=== PATIENT | male | born 1945 | race Caucasian/White ===

== ENCOUNTER 2025-07-09 12:40 | Inpatient (IN) | payer MEDICARE, OTHER ==
[~2025-07-09] VITALS: Ht 160 cm; Wt 47.2 kg
[2025-07-09 12:46] VITALS: BP 152/91
[2025-07-09] MEDS ORDERED: RISP0.5T5 PO (13:00)
[2025-07-09] MEDS ORDERED: [UNRECOGNIZED DRUG - CODE] PO (13:00)
[2025-07-09] MEDS ORDERED: MIRT-145 PO (13:00)
[2025-07-09] MEDS ORDERED: MIRT-93 PO (16:17)
[2025-07-09] MEDS ORDERED: LOSA1TAB42 PO (16:20)
[2025-07-09] MEDS ORDERED: ERGO125010 PO (16:20)
[2025-07-09] MEDS ORDERED: QUET50TA PO (16:21)
[2025-07-09] MEDS ORDERED: BUPR100T5 PO (16:21)
[2025-07-09] MEDS ORDERED: QUET25TA PO (16:21)
[2025-07-09] MEDS ORDERED: LOSARTAN POTASSIUM 50 MG TABLET PO PRN (17:15)
[2025-07-09] MEDS ORDERED: Medication Not On Formulary EA (Losartan/Hydrochlorothiazide (Losartan-Hctz 100-12.5 Mg PO PRN (17:15)
[2025-07-09] MEDS ORDERED: HYDROCHLOROTHIAZIDE 12.5 MG CAPSULE PO PRN (17:30)
[2025-07-09] MEDS ORDERED: ZOLPIDEM 5 MG TABLET PO PRN ×2 (17:45→19:30)
[2025-07-09] MEDS ORDERED: MAG HYDROX/AL HYDROX/SIMETH 30 ML LIQUID UDC PO PRN (17:45)
[2025-07-09] MEDS ORDERED: ACETAMINOPHEN 325 MG TABLET PO PRN (17:45)
[2025-07-09] MEDS ORDERED: LORAZEPAM 0.5 MG TABLET PO PRN ×2 (17:45→19:30)
[2025-07-09] MEDS ORDERED: MAGNESIUM HYDROXIDE 30 ML LIQUID UDC PO PRN (17:45)
[2025-07-09 18:01] VITALS: BP 134/94; TEMP 98.1; O2SAT 98
[2025-07-09 19:43] VITALS: BP 137/68; TEMP 98.1; O2SAT 98
[2025-07-10 07:30] LABS: ASPARTATE AMINOTRANSFERASE 11 U/L (15-37); CREATININE 1.1 mg/dL (0.6-1.3); SODIUM SERUM 144 mmol/L (136-145); TOTAL PROTEIN, SERUM 7.4 g/dL (6.4-8.2); UREA NITROGEN, BLOOD 36 mg/dL (7-18)
[2025-07-10 08:52] VITALS: BP 150/83; TEMP 98.1; O2SAT 98
[2025-07-10] MEDS: VENLAFAXINE XR 37.5 MG CAP.SR.24H PO SCH (09:00)
[2025-07-10] MEDS: ENSURE ENLIVE (VAN) 240 ML LIQUID PO SCH (12:04)
[2025-07-10 16:35] VITALS: BP 154/98; TEMP 98.1; O2SAT 98
[2025-07-10 20:02] VITALS: BP 147/90; TEMP 97.6; O2SAT 98
[2025-07-10] MEDS: QUETIAPINE FUMARATE 25 MG TABLET PO SCH (21:00)
[2025-07-10] MEDS: SIMVASTATIN 20 MG TABLET PO SCH (21:00)
[2025-07-11 07:50] VITALS: BP 122/77; TEMP 97.5; O2SAT 95
[2025-07-11 16:50] VITALS: BP 108/71; TEMP 97.4; O2SAT 97
[2025-07-11 19:49] VITALS: BP 100/73; TEMP 97.5; O2SAT 97
[2025-07-12 08:16] VITALS: BP 112/79; TEMP 98; O2SAT 99
[2025-07-12 15:10] VITALS: BP 131/86; TEMP 98; O2SAT 99
[2025-07-12 20:00] VITALS: BP 124/88; TEMP 97.4; O2SAT 91
[2025-07-13 09:17] VITALS: BP 104/72; TEMP 98; O2SAT 96
[2025-07-13 13:34] LABS: *BLOOD, URINE 2+ (NEGATIVE); *CLARITY,URINE TURBID (CLEAR); *COLOR,URINE DARK YELLOW (YELLOW); *KETONES,URINE 1+ (NEGATIVE); *PROTEIN,URINE 1+ (NEGATIVE); *UROBILINOGEN,URINE 1.0 E.U./dl (NORMAL); LEUKOCYTE ESTERASE ,URINE NEGATIVE (NEGATIVE); NITRITE, URINE NEGATIVE (NEGATIVE); UGLUCOSE NEGATIVE (NEGATIVE)
[2025-07-13 13:55] LABS: *BILIRUBIN,URIN 1+ (NEGATIVE)
[2025-07-13 14:02] LABS: SQUAMOUS EPITHELIAL CELL,UR FEW /HPF (NONE SEEN)
[2025-07-13 15:13] VITALS: BP 123/83; TEMP 98; O2SAT 96
[2025-07-13 20:20] VITALS: BP 118/78; TEMP 98.1; O2SAT 96
[2025-07-14 08:16] VITALS: BP 113/74; TEMP 98; O2SAT 100
[2025-07-14 08:20] LABS: PLATELET COUNT (AUTO) 139 K/uL (152-348); RED BLOOD CELL COUNT(AUTO) 3.84 MIL/uL (4.06-5.63); RED CELL DISTRIBUTION WIDTH 14.0 % (12.1-16.2); WHITE BLOOD COUNT (AUTO) 18.3 K/uL (3.6-10.2)
[2025-07-14 08:36] LABS: CREATININE 1.2 mg/dL (0.6-1.3); SODIUM SERUM 146 mmol/L (136-145); UREA NITROGEN, BLOOD 45 mg/dL (7-18)
[2025-07-14] MEDS ORDERED: VENLAFAXINE XR 37.5 MG CAP.SR.24H PO SCH (09:00)
[2025-07-14] MEDS: MEGESTROL ACETATE 20 MG TABLET PO SCH (11:37)
[2025-07-14] MEDS: IV D5W 1000ML 1,000 ML IV ONE (12:04)
[2025-07-14 15:44] VITALS: BP 102/71; TEMP 98; O2SAT 99
[2025-07-14 20:01] VITALS: BP 100/68; TEMP 98.1; O2SAT 96
[2025-07-15 08:13] LABS: PLATELET COUNT (AUTO) 107 K/uL (152-348); RED BLOOD CELL COUNT(AUTO) 3.71 MIL/uL (4.06-5.63); RED CELL DISTRIBUTION WIDTH 14.0 % (12.1-16.2); WHITE BLOOD COUNT (AUTO) 7.1 K/uL (3.6-10.2)
[2025-07-15 08:19] VITALS: BP 126/76; TEMP 98; O2SAT 96
[2025-07-15 08:24] LABS: CREATININE 1.1 mg/dL (0.6-1.3); SODIUM SERUM 144 mmol/L (136-145); UREA NITROGEN, BLOOD 42 mg/dL (7-18)
[2025-07-15] MEDS: VENLAFAXINE XR 75 MG TAB.ER.24H PO SCH (08:37)
[2025-07-15] MEDS: POTASSIUM CHLORIDE 20 MEQ TAB.PRT.SR PO ONE (13:42)
[2025-07-15 16:37] VITALS: BP 117/73; TEMP 98; O2SAT 100
[2025-07-15 20:19] VITALS: BP 130/85; TEMP 97.6; O2SAT 99
[2025-07-15] MEDS: QUETIAPINE FUMARATE 25 MG TABLET PO SCH (21:00)
[2025-07-16] MEDS ORDERED: SIMV-46 PO (01:36)
[2025-07-16] MEDS ORDERED: ZOLP5TAB18 PO (01:36)
[2025-07-16] MEDS ORDERED: VENL75TA74 PO (01:36)
[2025-07-16] MEDS ORDERED: CEFT1FRO2 IV (01:36)
[2025-07-16] MEDS ORDERED: LACT-246 PO ×2 (01:36→12:08)
[2025-07-16] MEDS ORDERED: LORA-259 PO (01:36)
[2025-07-16] MEDS ORDERED: [UNRECOGNIZED DRUG - CODE] IV (01:36)
[2025-07-16] MEDS ORDERED: QUET25TA PO (01:36)
[2025-07-16] MEDS ORDERED: ACET-3117 PO (01:36)
[2025-07-16] MEDS ORDERED: HYDR12.55 PO (01:36)
[2025-07-16] MEDS ORDERED: MAGN400O6 PO (01:36)
[2025-07-16 07:08] LABS: METHYLMALONIC ACID 244.0 nmol/L (0-378)
[2025-07-16] MEDS ORDERED: ACET-3752 PO (12:07)
[2025-07-16] MEDS ORDERED: MAG355OR18 PO (12:09)
[2025-07-16] MEDS ORDERED: MEGE20TA7 PO (12:10)
== END 2025-07-16 08:03 | disposition short-term general hospital (02) | DRG 885 ==
LOC: ER 12:40 → GPS 16:04 → UNDOADMIN 16:04 → MEDSURG3 17:45 → GPS 21:22 → MEDSURG3 07-15 11:23 → UNDOADMIN 07-15 11:23 → MEDSURG3 07-15 23:25 → GPS 07-15 23:25 → UNDOADMIN 07-16 00:15 → MEDSURG3 07-16 00:15 → GPS 07-16 00:15 → UNDODISIN 07-16 00:54
PROVIDERS: ADMIT Psychiatry & Neurology Psychiatry; ATTEND Student in an Organized Health Care Education/Training Program
DX: F33.3 Major depressive disorder, recurrent, severe with psychotic symptoms (principal); J18.9 Pneumonia, unspecified organism; R62.7 Adult failure to thrive; F50.89 Other specified eating disorder; G30.9 Alzheimer's disease, unspecified; F02.84 Dementia in other diseases classified elsewhere, unspecified severity, with anxiety; F02.83 Dementia in other diseases classified elsewhere, unspecified severity, with mood disturbance; Z68.1 Body mass index [BMI] 19.9 or less, adult; E86.0 Dehydration; E78.5 Hyperlipidemia, unspecified; M62.84 Sarcopenia; Z91.148 Patient's other noncompliance with medication regimen for other reason; M48.54XD Collapsed vertebra, not elsewhere classified, thoracic region, subsequent encounter for fracture with routine healing; M48.56XD Collapsed vertebra, not elsewhere classified, lumbar region, subsequent encounter for fracture with routine healing; Z79.899 Other long term (current) drug therapy; R79.89 Other specified abnormal findings of blood chemistry
CPT/HCPCS: 36415; 70450; 71045; 71250; 83735; 83921; 84100; 84443; 84481; 85025; 93005; A4606; A4663; G0378; J0696; J7070

== ENCOUNTER 2025-07-16 00:15 | Inpatient (IN) | payer MEDICARE, OTHER ==
[~2025-07-16] VITALS: Ht 160 cm; Wt 47.2 kg
[~2025-07-16 00:15] MED LIST: ERGO125010 PO; LOSA1TAB42 PO
[2025-07-16 00:30] VITALS: BP 125/80; TEMP 98.2; O2SAT 99
[2025-07-16] MEDS ORDERED: VENL75TA74 PO (01:36)
[2025-07-16] MEDS ORDERED: SIMV-46 PO (01:36)
[2025-07-16] MEDS ORDERED: QUET25TA PO (01:36)
[2025-07-16] MEDS ORDERED: MAGN400O6 PO (01:36)
[2025-07-16] MEDS ORDERED: ZOLP5TAB18 PO (01:36)
[2025-07-16] MEDS ORDERED: LORA-259 PO (01:36)
[2025-07-16] MEDS ORDERED: ACET-3117 PO (01:36)
[2025-07-16] MEDS ORDERED: HYDR12.55 PO (01:36)
[2025-07-16] MEDS ORDERED: LACT-246 PO ×2 (01:36→12:08)
[2025-07-16] MEDS ORDERED: CEFT1FRO2 IV (01:36)
[2025-07-16] MEDS ORDERED: [UNRECOGNIZED DRUG - CODE] IV (01:36)
[2025-07-16] MEDS ORDERED: ACETAMINOPHEN 325 MG TABLET PO PRN (01:45)
[2025-07-16] MEDS ORDERED: MAGNESIUM HYDROXIDE 30 ML LIQUID UDC PO PRN ×2 (01:45→02:00)
[2025-07-16] MEDS ORDERED: IV NS 1000 ML 1,000 ML IV PRN (01:45)
[2025-07-16] MEDS ORDERED: ONDANSETRON 4 MG/2 ML VIAL IV PRN (01:45)
[2025-07-16] MEDS ORDERED: ALBUTEROL SULFATE 2.5 MG/3 ML NEBU NEB PRN (01:45)
[2025-07-16] MEDS ORDERED: IPRATROPIUM BROMIDE 0.5 MG/2.5 ML NEBU NEB PRN (01:45)
[2025-07-16] MEDS ORDERED: LORAZEPAM 1 MG TABLET PO PRN (02:00)
[2025-07-16] MEDS ORDERED: Medication Not On Formulary EA (Acetaminophen 1 TAB) PO PRN (02:00)
[2025-07-16] MEDS ORDERED: LOSARTAN POTASSIUM 50 MG TABLET PO PRN (02:15)
[2025-07-16] MEDS ORDERED: HYDROCHLOROTHIAZIDE 12.5 MG CAPSULE PO PRN ×2 (02:15)
[2025-07-16] MEDS ORDERED: CEFTRIAXONE /D5W 50ML IVPB **ER PYXIS IV ONE (02:36)
[2025-07-16 03:50] LABS: PLATELET COUNT (AUTO) 113 K/uL (152-348); RED BLOOD CELL COUNT(AUTO) 3.80 MIL/uL (4.06-5.63); RED CELL DISTRIBUTION WIDTH 14.3 % (12.1-16.2); WHITE BLOOD COUNT (AUTO) 4.9 K/uL (3.6-10.2)
[2025-07-16 04:04] LABS: ASPARTATE AMINOTRANSFERASE 279 U/L (15-37); CREATININE 0.9 mg/dL (0.6-1.3); SODIUM SERUM 145 mmol/L (136-145); TOTAL PROTEIN, SERUM 7.3 g/dL (6.4-8.2); UREA NITROGEN, BLOOD 37 mg/dL (7-18)
[2025-07-16 05:50] VITALS: BP 121/82; TEMP 98.7; O2SAT 99
[2025-07-16] MEDS ORDERED: LORAZEPAM 0.5 MG TABLET PO PRN (06:45)
[2025-07-16] MEDS: ENSURE WITH FIBER 237 ML LIQUID (CHOCOLATE) PO SCH (09:00)
[2025-07-16] MEDS: ERGOCALCIFEROL 50,000 UNIT CAPSULE PO SCH (09:00)
[2025-07-16] MEDS ORDERED: VENLAFAXINE XR 75 MG TAB.ER.24H PO SCH (09:00)
[2025-07-16] MEDS: PANTOPRAZOLE SODIUM 40 MG VIAL IV SCH (09:47)
[2025-07-16] MEDS: ENOXAPARIN SODIUM 30 MG/0.3 ML DISP.SYRIN SQ SCH (09:48)
[2025-07-16 09:53] LABS: ASPARTATE AMINOTRANSFERASE 231.0 U/L (15-37); TOTAL PROTEIN, SERUM 7.3 g/dL (6.4-8.2)
[2025-07-16 09:55] VITALS: BP 144/84; TEMP 98.9; O2SAT 96
[2025-07-16] MEDS: buPROPion XL 150 MG TAB.SR.24H PO SCH (11:08)
[2025-07-16] MEDS ORDERED: ACET-3752 PO (12:07)
[2025-07-16] MEDS ORDERED: MAG355OR18 PO (12:09)
[2025-07-16] MEDS ORDERED: MEGE20TA7 PO (12:10)
[2025-07-16] MEDS: POTASSIUM CHLORIDE 50 ML IV SCH (13:06)
[2025-07-16] MEDS: AMLODIPINE 5 MG TABLET PO SCH (13:13)
[2025-07-16] MEDS: IV D5 1/2 NS 1000 ML 1,000 ML IV PRN (15:56)
[2025-07-16] MEDS: MEGESTROL ACETATE 20 MG TABLET PO SCH (17:32)
[2025-07-16] MEDS ORDERED: SIMVASTATIN 20 MG TABLET PO SCH (18:00)
[2025-07-16] MEDS: QUETIAPINE FUMARATE 25 MG TABLET PO SCH (21:07)
[2025-07-17 06:18] VITALS: BP 120/73; TEMP 97.3; O2SAT 99
[2025-07-17 07:25] LABS: PLATELET COUNT (AUTO) 134 K/uL (152-348); RED BLOOD CELL COUNT(AUTO) 3.61 MIL/uL (4.06-5.63); RED CELL DISTRIBUTION WIDTH 14.0 % (12.1-16.2); WHITE BLOOD COUNT (AUTO) 3.5 K/uL (3.6-10.2)
[2025-07-17 07:49] LABS: ASPARTATE AMINOTRANSFERASE 106 U/L (15-37); CREATININE 0.9 mg/dL (0.6-1.3); SODIUM SERUM 143 mmol/L (136-145); TOTAL PROTEIN, SERUM 7.0 g/dL (6.4-8.2); UREA NITROGEN, BLOOD 25 mg/dL (7-18)
[2025-07-17 08:00] VITALS: BP 145/90; TEMP 98.1; O2SAT 99
[2025-07-17] MEDS ORDERED: risperiDONE 1 MG/ML UDC PO SCH (09:00)
[2025-07-17] MEDS: DOXYCYCLINE HYCLATE 100 MG TABLET PO SCH (10:33)
[2025-07-17 12:00] VITALS: BP 128/72; TEMP 98.3; O2SAT 99
[2025-07-17] MEDS ORDERED: POTASSIUM CHLORIDE 20 MEQ TAB.PRT.SR PO ONE (12:00)
[2025-07-17 12:05] LABS: HIV-1/2 ANTIBODY NON REACTIVE (NONREACTIVE)
[2025-07-17] MEDS: NEUTRA PHOS PACKET PO ONE (12:26)
[2025-07-17] MEDS: LORAZEPAM 0.5 MG TABLET PO PRN (13:39)
[2025-07-17 16:00] VITALS: BP 103/72; TEMP 97.8; O2SAT 97
[2025-07-17 18:39] LABS: *BLOOD, URINE NEGATIVE (NEGATIVE); *CLARITY,URINE CLEAR (CLEAR); *COLOR,URINE YELLOW (YELLOW); *KETONES,URINE NEGATIVE (NEGATIVE); *PROTEIN,URINE TRACE (NEGATIVE); *UROBILINOGEN,URINE 2.0 E.U./dl (NORMAL); LEUKOCYTE ESTERASE ,URINE NEGATIVE (NEGATIVE); NITRITE, URINE NEGATIVE (NEGATIVE); UGLUCOSE NEGATIVE (NEGATIVE)
[2025-07-17 18:42] LABS: *BILIRUBIN,URIN 1+ (NEGATIVE)
[2025-07-17 20:00] VITALS: BP 142/84; TEMP 97.4; O2SAT 100
[2025-07-18 02:08] LABS: HEPATITIS A AB, IgM Negative (Negative); HEPATITIS A AB, TOTAL Positive (Negative); HEPATITIS B CORE AB, TOTAL Positive (Negative); HEPATITIS B SURFACE AB, QUAL Reactive (.); HEPATITIS B SURFACE AG Negative (Negative); HEPATITIS C VIRUS ANTIBODY Non Reactive (Non Reactive)
[2025-07-18 06:00] VITALS: BP 130/80; TEMP 97.3; O2SAT 93
[2025-07-18 06:45] LABS: PLATELET COUNT (AUTO) 120 K/uL (152-348); RED BLOOD CELL COUNT(AUTO) 3.39 MIL/uL (4.06-5.63); RED CELL DISTRIBUTION WIDTH 14.0 % (12.1-16.2); WHITE BLOOD COUNT (AUTO) 3.1 K/uL (3.6-10.2)
[2025-07-18 07:02] LABS: ASPARTATE AMINOTRANSFERASE 74 U/L (15-37); CREATININE 0.8 mg/dL (0.6-1.3); SODIUM SERUM 142 mmol/L (136-145); TOTAL PROTEIN, SERUM 6.6 g/dL (6.4-8.2); UREA NITROGEN, BLOOD 20 mg/dL (7-18)
[2025-07-18] MEDS: PANTOPRAZOLE SODIUM 40 MG TABLET.DR PO SCH (08:32)
[2025-07-18] MEDS ORDERED: IOHEXOL 350 100 ML INFUS..BTL ONE (09:56)
[2025-07-18] MEDS ORDERED: IV NORMAL SALINE 250 ML IV ONE (09:56)
[2025-07-18] MEDS ORDERED: SWABABLE VALVE TRANSFER SET EA MC ONE (09:56)
[2025-07-18] MEDS: POTASSIUM CHLORIDE 20 MEQ TAB.PRT.SR PO ONE ×2 (11:07→15:12)
[2025-07-18 13:39] VITALS: BP 111/77; TEMP 97.8; O2SAT 100
[2025-07-18 15:19] VITALS: BP 121/77; TEMP 97.9; O2SAT 99
[2025-07-18 19:38] VITALS: BP 142/86; TEMP 97.6; O2SAT 98
[2025-07-19 05:00] VITALS: BP 125/76; TEMP 97.8; O2SAT 98
[2025-07-19 07:17] LABS: PLATELET COUNT (AUTO) 152 K/uL (152-348); RED BLOOD CELL COUNT(AUTO) 3.71 MIL/uL (4.06-5.63); RED CELL DISTRIBUTION WIDTH 14.3 % (12.1-16.2); WHITE BLOOD COUNT (AUTO) 4.7 K/uL (3.6-10.2)
[2025-07-19 07:32] LABS: ASPARTATE AMINOTRANSFERASE 59 U/L (15-37); CREATININE 0.7 mg/dL (0.6-1.3); SODIUM SERUM 138 mmol/L (136-145); TOTAL PROTEIN, SERUM 6.8 g/dL (6.4-8.2); UREA NITROGEN, BLOOD 11 mg/dL (7-18)
[2025-07-19 07:51] VITALS: BP 129/83; TEMP 97.4; O2SAT 100
[2025-07-19] MEDS: risperiDONE-M 0.5 MG TAB.RAPDIS PO SCH (08:58)
[2025-07-19] MEDS: OLANZAPINE 10 MG VIAL IM PRN (09:08)
[2025-07-19] MEDS: NEUTRA PHOS PACKET PO ONE (17:16)
[2025-07-19 19:10] LABS: ADENOVIRUS Not Detected (Not Detected); CORONAVIRUS 229E Not Detected (Not Detected); CORONAVIRUS HKU1 Not Detected (Not Detected); CORONAVIRUS NL63 Not Detected (Not Detected); CORONAVIRUS OC43 Not Detected (Not Detected); NP BORDETELLA PERTUSIS Not Detected (Not Detected); NP CHLAMYDOPHILA PNEUMONIAE Not Detected (Not Detected); NP HUMAN METAPNEUMOVIRUS Not Detected (Not Detected); NP HUMAN RHINO/ENTERO VIRUS Not Detected (Not Detected); NP INFLUENZA A Not Detected (Not Detected); NP INFLUENZA A/H1 Not Detected (Not Detected); NP INFLUENZA A/H1-2009 Not Detected (Not Detected); NP INFLUENZA A/H3 Not Detected (Not Detected); NP INFLUENZA B Not Detected (Not Detected); NP MYCOPLASMA PNEUMONIAE Not Detected (Not Detected); NP PARAINFLUENZA 1 Not Detected (Not Detected); NP PARAINFLUENZA 2 Not Detected (Not Detected); NP PARAINFLUENZA 3 Not Detected (Not Detected); NP PARAINFLUENZA 4 Not Detected (Not Detected); NP RESPIRATORY SYNCYTIAL VIRUS Not Detected (Not Detected)
[2025-07-19 19:40] VITALS: BP 90/52; TEMP 97.5; O2SAT 94
[2025-07-19] MEDS: ZOLPIDEM 5 MG TABLET PO PRN (23:04)
[2025-07-20 06:42] VITALS: BP 122/77; TEMP 97.6; O2SAT 98
[2025-07-20 19:45] VITALS: BP 113/75; TEMP 98.7; O2SAT 99
[2025-07-20 20:00] VITALS: BP 113/75; TEMP 98.7; O2SAT 99
[2025-07-21 05:46] LABS: PLATELET COUNT (AUTO) 174 K/uL (152-348); RED BLOOD CELL COUNT(AUTO) 3.26 MIL/uL (4.06-5.63); RED CELL DISTRIBUTION WIDTH 14.2 % (12.1-16.2); WHITE BLOOD COUNT (AUTO) 6.0 K/uL (3.6-10.2)
[2025-07-21 06:02] VITALS: BP 127/75; TEMP 97.7; O2SAT 98
[2025-07-21 06:02] LABS: ASPARTATE AMINOTRANSFERASE 42 U/L (15-37); CREATININE 0.7 mg/dL (0.6-1.3); SODIUM SERUM 138 mmol/L (136-145); TOTAL PROTEIN, SERUM 6.5 g/dL (6.4-8.2); UREA NITROGEN, BLOOD 8 mg/dL (7-18)
[2025-07-21 08:00] VITALS: BP 168/98; TEMP 98.3; O2SAT 98
[2025-07-21 12:00] VITALS: BP 91/53; TEMP 98.9; O2SAT 98
[2025-07-21] MEDS: POTASSIUM CHLORIDE 50 ML IV SCH (13:48)
[2025-07-21 16:00] VITALS: BP 93/52; TEMP 98.6; O2SAT 98
[2025-07-21] MEDS: DOCUSATE SODIUM 100 MG CAPSULE PO SCH (21:00)
[2025-07-22] MEDS ORDERED: CEFTRIAXONE /D5W 50ML IVPB **ER PYXIS IV ONE (04:16)
[2025-07-22 06:38] VITALS: BP 136/79; TEMP 98.1; O2SAT 99
[2025-07-22 08:00] VITALS: BP 126/73; TEMP 97.7; O2SAT 99
[2025-07-22] MEDS: MEGESTROL ACETATE 20 MG TABLET PO SCH (08:04)
[2025-07-22 11:00] VITALS: BP 95/64; TEMP 97.5; O2SAT 97
[2025-07-22 16:00] VITALS: BP 117/73; TEMP 98.4; O2SAT 99
[2025-07-22 19:00] VITALS: BP 115/81; TEMP 98.4; O2SAT 97
[2025-07-23 06:21] VITALS: BP 118/72; TEMP 97.9; O2SAT 99
[2025-07-23 06:48] LABS: PLATELET COUNT (AUTO) 227 K/uL (152-348); RED BLOOD CELL COUNT(AUTO) 3.16 MIL/uL (4.06-5.63); RED CELL DISTRIBUTION WIDTH 13.9 % (12.1-16.2); WHITE BLOOD COUNT (AUTO) 5.4 K/uL (3.6-10.2)
[2025-07-23 07:10] LABS: ASPARTATE AMINOTRANSFERASE 23 U/L (15-37); CREATININE 0.8 mg/dL (0.6-1.3); SODIUM SERUM 136 mmol/L (136-145); TOTAL PROTEIN, SERUM 6.2 g/dL (6.4-8.2); UREA NITROGEN, BLOOD 29 mg/dL (7-18)
[2025-07-23 07:49] VITALS: BP 116/73; TEMP 98; O2SAT 96
[2025-07-23] MEDS: OLANZAPINE ZYDIS 5 MG TAB.RAPDIS PO SCH (10:10)
[2025-07-23] MEDS ORDERED: OLANZAPINE ZYDIS PO (15:13)
[2025-07-23] MEDS ORDERED: MEGE20TA7 PO (15:13)
[2025-07-23] MEDS ORDERED: PANT40TA49 PO (15:13)
[2025-07-23] MEDS ORDERED: LORA0.5T48 PO (15:13)
[2025-07-23] MEDS ORDERED: AMLO-212 PO (15:13)
[2025-07-23] MEDS ORDERED: ASPI-1101 PO (15:13)
[2025-07-23] MEDS ORDERED: DOCU-141 PO (15:13)
[2025-07-23] MEDS ORDERED: BUPR-53 PO (15:13)
[2025-07-23 15:36] VITALS: BP 96/68; TEMP 98.5; O2SAT 97
== END 2025-07-23 18:35 | DRG 871 ==
LOC: MEDSURG3 00:15
PROVIDERS: ADMIT Nurse Practitioner Family; ATTEND Student in an Organized Health Care Education/Training Program
DX: A41.9 Sepsis, unspecified organism (principal); G92.8 Other toxic encephalopathy; J18.9 Pneumonia, unspecified organism; J69.0 Pneumonitis due to inhalation of food and vomit; E44.0 Moderate protein-calorie malnutrition; D61.818 Other pancytopenia; F33.3 Major depressive disorder, recurrent, severe with psychotic symptoms; R64 Cachexia; D68.59 Other primary thrombophilia; E88.09 Other disorders of plasma-protein metabolism, not elsewhere classified; R65.20 Severe sepsis without septic shock; F02.82 Dementia in other diseases classified elsewhere, unspecified severity, with psychotic disturbance; I71.21 Aneurysm of the ascending aorta, without rupture; I10 Essential (primary) hypertension; J21.8 Acute bronchiolitis due to other specified organisms; Z68.1 Body mass index [BMI] 19.9 or less, adult; F02.83 Dementia in other diseases classified elsewhere, unspecified severity, with mood disturbance; F02.84 Dementia in other diseases classified elsewhere, unspecified severity, with anxiety; F02.818 Dementia in other diseases classified elsewhere, unspecified severity, with other behavioral disturbance; G30.9 Alzheimer's disease, unspecified; R62.7 Adult failure to thrive; Z74.09 Other reduced mobility; I25.10 Atherosclerotic heart disease of native coronary artery without angina pectoris; M81.0 Age-related osteoporosis without current pathological fracture; E78.5 Hyperlipidemia, unspecified; T46.6X5A Adverse effect of antihyperlipidemic and antiarteriosclerotic drugs, initial encounter; Y92.009 Unspecified place in unspecified non-institutional (private) residence as the place of occurrence of the external cause; R74.01 Elevation of levels of liver transaminase levels; M15.9 Polyosteoarthritis, unspecified; M51.34 Other intervertebral disc degeneration, thoracic region; K44.9 Diaphragmatic hernia without obstruction or gangrene; N20.0 Calculus of kidney
CPT/HCPCS: 36415; 71275; 76705; 82378; 83690; 83735; 84100; 84443; 84484; 85025; 85610; 86704; 86706; 86708; 86709; 86803; 87040; 87086; 87340; 87806; A4663; G0378; J0696; J1650; J2358; J2470; J3480; J7040; Q9967

== ENCOUNTER 2025-07-23 19:18 | Inpatient (IN) | payer MEDICARE, OTHER ==
[~2025-07-23] VITALS: Ht 160 cm; Wt 43.5 kg
[~2025-07-23 19:18] MED LIST changes: +ACET-3752 PO; +AMLO-212 PO; +ASPI-1101 PO; +BUPR-53 PO; +DOCU-141 PO; +LACT-246 PO; +LORA-259 PO; +LORA0.5T48 PO; +MAG355OR18 PO; +MAGN400O6 PO; +MEGE20TA7 PO; +OLANZAPINE ZYDIS PO; +PANT40TA49 PO; +QUET25TA PO; +SIMV-46 PO; +VENL75TA74 PO; +ZOLP5TAB18 PO
[2025-07-23] MEDS ORDERED: ZOLPIDEM 5 MG TABLET PO PRN (19:45)
[2025-07-23] MEDS ORDERED: MAGNESIUM HYDROXIDE 30 ML LIQUID UDC PO PRN ×2 (19:45→20:00)
[2025-07-23] MEDS ORDERED: LORAZEPAM 0.5 MG TABLET PO PRN ×3 (19:45→20:00)
[2025-07-23] MEDS ORDERED: ACETAMINOPHEN 325 MG TABLET-SA PATIENTS-PAIN ONLY PO PRN (19:45)
[2025-07-23] MEDS ORDERED: ACETAMINOPHEN 325 MG TABLET PO PRN (20:00)
[2025-07-23] MEDS ORDERED: MAG HYDROX/AL HYDROX/SIMETH 30 ML LIQUID UDC PO PRN (20:00)
[2025-07-23] MEDS: DOCUSATE SODIUM 100 MG CAPSULE PO SCH (21:00)
[2025-07-23] MEDS: ZOLPIDEM 5 MG TABLET PO PRN (21:55)
[2025-07-24] MEDS: PANTOPRAZOLE SODIUM 40 MG TABLET.DR PO SCH (07:00)
[2025-07-24 08:13] LABS: ASPARTATE AMINOTRANSFERASE 20 U/L (15-37); CREATININE 0.8 mg/dL (0.6-1.3); SODIUM SERUM 138 mmol/L (136-145); TOTAL PROTEIN, SERUM 6.7 g/dL (6.4-8.2); UREA NITROGEN, BLOOD 14 mg/dL (7-18)
[2025-07-24 08:35] VITALS: BP 122/84; TEMP 98; O2SAT 97
[2025-07-24] MEDS: ASPIRIN EC 81 MG TABLET.DR PO SCH (08:59)
[2025-07-24] MEDS: AMLODIPINE 5 MG TABLET PO SCH (09:00)
[2025-07-24] MEDS: ENSURE ENLIVE (VAN) 240 ML LIQUID PO SCH (09:00)
[2025-07-24] MEDS ORDERED: Medication Not On Formulary EA (Lactose-Reduced Food (Ensure Enlive) 237 ML) PO SCH (09:00)
[2025-07-24] MEDS: MEGESTROL ACETATE 20 MG TABLET PO SCH (09:00)
[2025-07-24] MEDS: OLANZAPINE ZYDIS 5 MG TAB.RAPDIS PO SCH (09:03)
[2025-07-24] MEDS: buPROPion XL 150 MG TAB.SR.24H PO SCH (10:17)
[2025-07-24 16:42] VITALS: BP 122/74; TEMP 98; O2SAT 97
[2025-07-24 22:31] VITALS: BP 106/73; TEMP 98; O2SAT 98
[2025-07-25 09:28] VITALS: BP 114/72; TEMP 98; O2SAT 100
[2025-07-25] MEDS: OLANZAPINE ZYDIS 5 MG TAB.RAPDIS PO SCH (09:31)
[2025-07-25 16:57] VITALS: BP 129/80; TEMP 97.7; O2SAT 98
[2025-07-25 19:41] VITALS: BP 100/72; TEMP 97.8; O2SAT 98
[2025-07-26 08:50] VITALS: BP 113/79; TEMP 98.4; O2SAT 98
[2025-07-26 15:21] VITALS: BP 98/64; TEMP 98.6; O2SAT 96
[2025-07-26 20:04] VITALS: BP 136/46; TEMP 98.5; O2SAT 97
[2025-07-27 07:46] VITALS: BP 100/57; TEMP 98; O2SAT 96
[2025-07-27 15:11] VITALS: BP 92/60; TEMP 98; O2SAT 96
[2025-07-27 20:04] VITALS: BP 101/56; TEMP 98.1; O2SAT 96
[2025-07-28 07:48] VITALS: BP 116/67; TEMP 98; O2SAT 98
[2025-07-28 15:46] VITALS: BP 108/69; TEMP 98; O2SAT 98
[2025-07-28] MEDS: LORAZEPAM 0.5 MG TABLET PO PRN (20:49)
[2025-07-28 21:53] VITALS: BP 105/71; TEMP 98; O2SAT 97
[2025-07-29 08:33] VITALS: BP 118/77; TEMP 97.6; O2SAT 98
[2025-07-29 16:27] VITALS: BP 105/56; TEMP 98; O2SAT 98
[2025-07-29 20:05] VITALS: BP 97/67; TEMP 98; O2SAT 100
[2025-07-29] MEDS: ZOLPIDEM 5 MG TABLET PO PRN (20:28)
[2025-07-30 08:33] VITALS: BP 99/65; TEMP 97.6; O2SAT 98
[2025-07-30 16:19] VITALS: BP 108/70; TEMP 98; O2SAT 98
[2025-07-30] MEDS: OLANZAPINE ZYDIS 5 MG TAB.RAPDIS PO SCH (16:52)
[2025-07-30] MEDS: OLANZAPINE 5 MG TABLET PO SCH (20:43)
[2025-07-30 23:21] VITALS: BP 108/73; TEMP 98.7; O2SAT 98
[2025-07-31 08:25] VITALS: BP 114/75; TEMP 97.6; O2SAT 98
[2025-07-31 16:17] VITALS: BP 104/68; TEMP 98; O2SAT 98
[2025-07-31 19:46] VITALS: BP 99/69; TEMP 97.9; O2SAT 96
[2025-07-31] MEDS: TRAZODONE 50 MG TABLET PO SCH (20:22)
[2025-07-31] MEDS: MELATONIN 3 MG TABLET PO SCH (20:22)
[2025-08-01 06:56] LABS: *BILIRUBIN,URIN NEGATIVE (NEGATIVE); *BLOOD, URINE 1+ (NEGATIVE); *COLOR,URINE YELLOW (YELLOW); *KETONES,URINE NEGATIVE (NEGATIVE); *PROTEIN,URINE NEGATIVE (NEGATIVE); *UROBILINOGEN,URINE 0.2 E.U./dl (NORMAL); LEUKOCYTE ESTERASE ,URINE NEGATIVE (NEGATIVE); NITRITE, URINE NEGATIVE (NEGATIVE); UGLUCOSE NEGATIVE (NEGATIVE)
[2025-08-01 07:18] LABS: *CLARITY,URINE HAZY (CLEAR); URINE AMORPHOUS URATE FEW /HPF
[2025-08-01 08:06] VITALS: BP 110/66; TEMP 97.6; O2SAT 98
[2025-08-01 16:02] VITALS: BP 92/56; TEMP 98; O2SAT 97
[2025-08-01 19:52] VITALS: BP 101/56; TEMP 98.1; O2SAT 96
[2025-08-02 08:02] VITALS: BP 99/62; TEMP 97.8; O2SAT 96
[2025-08-02 15:13] VITALS: BP 97/59; TEMP 98; O2SAT 97
[2025-08-02 19:57] VITALS: BP 100/60; TEMP 98.2; O2SAT 96
[2025-08-03 09:05] VITALS: BP_SYST 126; BP_SYST 96; BP_DIAS 61; BP_DIAS 69; TEMP 98; TEMP 98.2; O2SAT 96; O2SAT 98
[2025-08-03 15:04] VITALS: BP 97/51; TEMP 98; O2SAT 98
[2025-08-04 08:00] VITALS: BP 145/83; TEMP 97.5; O2SAT 98
[2025-08-04 09:09] VITALS: BP 145/83
== END 2025-08-04 12:40 | disposition home or self-care (01) | DRG 885 ==
LOC: GPS 19:18
PROVIDERS: ADMIT Psychiatry & Neurology Psychiatry
DX: F33.3 Major depressive disorder, recurrent, severe with psychotic symptoms (principal); E44.0 Moderate protein-calorie malnutrition; F02.82 Dementia in other diseases classified elsewhere, unspecified severity, with psychotic disturbance; D68.59 Other primary thrombophilia; I71.21 Aneurysm of the ascending aorta, without rupture; Z68.1 Body mass index [BMI] 19.9 or less, adult; G30.9 Alzheimer's disease, unspecified; E78.5 Hyperlipidemia, unspecified; N20.0 Calculus of kidney; M81.0 Age-related osteoporosis without current pathological fracture; R62.7 Adult failure to thrive; M15.9 Polyosteoarthritis, unspecified; K44.9 Diaphragmatic hernia without obstruction or gangrene; Z74.09 Other reduced mobility; R74.01 Elevation of levels of liver transaminase levels; Z79.899 Other long term (current) drug therapy; Z87.01 Personal history of pneumonia (recurrent); I25.10 Atherosclerotic heart disease of native coronary artery without angina pectoris; M51.34 Other intervertebral disc degeneration, thoracic region
CPT/HCPCS: 36415; 87086